=== PATIENT | male | born 1955 | race Caucasian/White ===

== ENCOUNTER 2020-09-28 11:38 | Emergency (ER) | payer MEDICARE ==
[2020-09-28] MEDS ORDERED: NA CHLORIDE 0.9% 2,000 ML ONE (12:07)
[2020-09-28] MEDS ORDERED: ADENOSINE 6 MG/ 2ML VIAL IV ONE ×2 (12:08→12:13)
[2020-09-28] MEDS ORDERED: MIDAZOLAM HCL 2 MG/2 ML INJ ONE (12:12)
[2020-09-28] MEDS ORDERED: FENTANYL CITR 100 MCG/2 ML ONE (12:13)
[2020-09-28 12:15] LABS: Absolute Lymphocytes (CBC) 3.6 K/uL (0.7-4.9); Basophils % 1.1 % (0-1.3); Hematocrit 49.2 % (39.6-49.0); Lymphocytes % 34.4 % (15.3-44.8); MPV 8.1 fL (7.6-11.3); RBC Red Blood Cell Count 5.61 M/uL (4.33-5.43)
[2020-09-28] MEDS ORDERED: METOPROLOL TARTRATE 5 MG/5 ML INJ IV ONE (12:19)
[2020-09-28 12:24] LABS: Protime INR 1.03
[2020-09-28 12:37] LABS: ALT/SGPT 72 U/L (12-78); AST/SGOT 36 U/L (15-37); Albumin 4.8 g/dL (3.4-5.0); Alkaline Phosphatase 69 U/L (45-117); BUN Blood Urea Nitrogen 24 mg/dL (7-18); Bicarbonate 22 mmol/L (21-32); Bilirubin Direct 0.1 mg/dL (0-0.2); Bilirubin Total 0.5 mg/dL (0.2-1.0); Glucose Level 156 mg/dL (74-106); Magnesium 2.1 mg/dL (1.8-2.4); NT PRO-BNP 99 pg/mL (<125); Protein, Total 8.7 g/dL (6.4-8.2); Sodium Level 136 mmol/L (136-145); Troponin (Emerg Dept Use Only) < 0.02 ng/mL (0.0-0.045)
--- NOTE | 2020-09-28 12:40 | RAD REPORT ---
EXAM DESCRIPTION: RAD - Chest Single View - 09/28/2020 12:35 pm CLINICAL HISTORY: SOB COMPARISON: No comparisons FINDINGS: No evidence of edema or pneumonia. The heart size is within normal limits.No acute osseous abnormality. No significant pleural effusions or pneumothorax. Sternotomy. IMPRESSION: No acute cardiopulmonary disease.
--- NOTE | 2020-09-28 15:54 | EDPHYS ---
Physician Documentation [facility] Name: Homer Calero Age: 65 yrs Sex: Male : 1955 Arrival Date: 09/28/2020 Time: 11:45 Bed 20 Private MD: ED Physician Rolando Alarcon HPI: 09/28 16:10 This 65 yrs old Male presents to ER via Wheelchair with complaints of kdr Palpitations. 16:10 The patient presents with a history of heart racing. Context: The symptoms occur with kdr strenuous activity. Onset: The symptoms/episode began/occurred suddenly, just prior to arrival. Duration: The patient or guardian reports a single episode, that is still ongoing. Modifying factors: The symptoms are aggravated by nothing. The symptoms are alleviated by nothing. Associated signs and symptoms: Pertinent positives: lightheadedness, nausea. Severity of symptoms: At their worst the symptoms were moderate severe just prior to arrival, in the emergency department the symptoms are unchanged. The patient has not experienced similar symptoms in the past. The patient has not recently seen a physician. 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 - Social history:: Smoking status: Patient denies any tobacco usage or history of. ROS: 16:10 Constitutional: Negative for fever, chills, and weight loss, Eyes: Negative for injury, kdr pain, redness, and discharge, ENT: Negative for injury, pain, and discharge, Neck: Negative for injury, pain, and swelling, Respiratory: Negative for shortness of breath, cough, wheezing, and pleuritic chest pain, Abdomen/GI: Negative for abdominal pain, nausea, vomiting, diarrhea, and constipation, Back: Negative for injury and pain, : Negative for injury, bleeding, discharge, and swelling, MS/Extremity: Negative for injury and deformity, Skin: Negative for injury, rash, and discoloration, Neuro: Negative for headache, weakness, numbness, tingling, and seizure activity. Psych: Negative for depression, anxiety, suicide ideation, homicidal ideation, and hallucinations, Allergy/Immunology: Negative for hives, rash, and allergies, Endocrine: Negative for neck swelling, polydipsia, polyuria, polyphagia, and marked weight changes, Hematologic/Lymphatic: Negative for swollen nodes, abnormal bleeding, and unusual bruising. 16:10 Cardiovascular: Positive for palpitations, Fast thready pulse. Exam: 14:22 ECG was reviewed by the Attending Physician. kdr 16:10 Constitutional: This is a well developed, well nourished patient who is awake, alert, kdr and in no acute distress. Head/Face: Normocephalic, atraumatic. Eyes: Pupils equal round and reactive to light, extra-ocular motions intact. Lids and lashes normal. Conjunctiva and sclera are non-icteric and not injected. Cornea within normal limits. Periorbital areas with no swelling, redness, or edema. Neck: Trachea midline, no thyromegaly or masses palpated, and no cervical lymphadenopathy. Supple, full range of motion without nuchal rigidity, or vertebral point tenderness. No Meningismus. Chest/axilla: Normal chest wall appearance and motion. Nontender with no deformity. No lesions are appreciated. Respiratory: Lungs have equal breath sounds bilaterally, clear to auscultation and percussion. No rales, rhonchi or wheezes noted. No increased work of breathing, no retractions or nasal flaring. Abdomen/GI: Soft, non-tender, with normal bowel sounds. No distension or tympany. No guarding or rebound. No evidence of tenderness throughout. Back: No spinal tenderness. No costovertebral tenderness. Full range of motion. Skin: Warm, dry with normal turgor. Normal color with no rashes, no lesions, and no evidence of cellulitis. MS/ Extremity: Pulses equal, no cyanosis. Neurovascular intact. Full, normal range of motion. Neuro: Awake and alert, GCS 15, oriented to person, place, time, and situation. Cranial nerves II-XII grossly intact. Motor strength 5/5 in all extremities. Sensory grossly intact. Cerebellar exam normal. Normal gait. Psych: Awake, alert, with orientation to person, place and time. Behavior, mood, and affect are within normal limits. 16:10 Cardiovascular: Rate: tachycardic, Rhythm: regular, Pulses: no pulse deficits are appreciated, Heart sounds: normal, Edema: is not appreciated, JVD: is not appreciated. Vital Signs: 11:40 BP 109 / 89; Pulse 167; Resp 15; Pulse Ox 100% ; ld1 11:43 BP 105 / 73; Pulse 170; Resp 15; Pulse Ox 100% ; ld1 11:46 BP 88 / 71; Pulse 170; Resp 15; Pulse Ox 100% on R/A; ld1 11:50 BP 131 / 59; Pulse 102; Resp 12; Pulse Ox 100% ; ld1 11:56 BP 120 / 55; Pulse 84; Resp 19; Pulse Ox 100% on R/A; ld1 13:07 BP 129 / 65; Pulse 76; Resp 18; Pulse Ox 99% on R/A; ld1 15:06 BP 152 / 66; Pulse 76; Resp 18; Pulse Ox 100% on R/A; Pain 0/10; ld1 16:17 BP 156 / 68; Pulse 78; Resp 18; Pulse Ox 100% on R/A; ld1 Procedures: 16:10 Cardioversion: Chemical: 08/22 x 1. kdr MDM: 11:51 Patient medically screened. [facility] 15:55 Data reviewed: vital signs, nurses notes, lab test result(s), radiologic studies. kdr Counseling: I had a detailed discussion with the patient and/or guardian regarding: the historical points, exam findings, and any diagnostic results supporting the discharge/admit diagnosis, lab results, radiology results, the need for outpatient follow up. Response to treatment: the patient's symptoms have resolved after treatment, the patient's blood pressure is in an acceptable range, mental status has returned to baseline, the patient no longer shows bradycardia, the patient is not short of breath, the patient is not tachycardic. Special discussion: Based on the patient's history, exam, and Dx evaluation, there is no indication for emergent intervention or inpatient Tx. It is understood by the patient/guardian that if the Sx's persist or worsen they need to return immediately for re-evaluation. I discussed with the patient/guardian in detail that at this point there is no indication for admission to the hospital. It is understood, however, that if the symptoms persist or worsen the patient needs to return immediately for re-evaluation. ED course: See the nursing notes for medications given and time stamp. The patient improved with medications given and remained stable in the ED. 09/28 12:01 Order name: Basic Metabolic Panel [facility] 09/28 12:01 Order name: CBC with Diff; Complete Time: 15:34 [facility] 09/28 12:01 Order name: LFT's; Complete Time: 15: [facility] 09/28 12:01 Order name: Magnesium; Complete Time: 15: [facility] 09/28 12:01 Order name: NT PRO-BNP; Complete Time: 15:34 [facility] 09/28 12:01 Order name: PT-INR; Complete Time: 15: [facility] 09/28 12:01 Order name: Troponin (emerg Dept Use Only); Complete Time: 15:34 [facility] 09/28 12:01 Order name: XRAY Chest (1 view); Complete Time: 15:34 [facility] 09/28 12:01 Order name: Basic Metabolic Panel; Complete Time: 15:34 EDMS 09/28 13:37 Order name: Troponin (emerg Dept Use Only); Complete Time: 15:34 [facility] 09/28 12:01 Order name: EKG; Complete Time: 12:02 [facility] 09/28 12:01 Order name: Cardiac monitoring; Complete Time: 12: [facility] 09/28 12:01 Order name: EKG - Nurse/Tech; Complete Time: 12: [facility] 09/28 12:01 Order name: IV Saline Lock; Complete Time: 12: [facility] 09/28 12:01 Order name: Labs collected and sent; Complete Time: 12: [facility] 09/28 12:01 Order name: O2 Per Protocol; Complete Time: 12: [facility] 09/28 12:01 Order name: O2 Sat Monitoring; Complete Time: 12: [facility] 09/28 14:20 Order name: Labs - recollect needed: green top; Complete Time: 15:04 aa5 EC:22 Rate is 176 beats/min. Rhythm is regular, Sinus tachycardia with No ectopy. QRS Eunice is kdr Normal. DC interval is normal. QRS interval is normal. QT interval is normal. No Q waves. Clinical impression: Sinus tachycardia. Administered Medications: 11:48 Drug: Adenosine 6 mg Route: IVP; Site: right antecubital; ld1 12:07 Follow up: Response: Cardiac rhythm changed ld1 11:51 Drug: Adenosine 12 mg Route: IVP; Site: right antecubital; ld1 12:06 Follow up: Response: Cardiac rhythm changed ld1 12:00 Drug: Lopressor (metoprolol) 5 mg Route: IVP; Site: right antecubital; ld1 12:07 Follow up: Response: No adverse reaction ld1 12:06 Drug: NS 0.9% 1000 ml Route: IV; Rate: 1 bolus; Site: right antecubital; ld1 13:17 Follow up: Response: No adverse reaction; IV Status: Completed infusion; IV Intake: ld1 1000ml 12:16 CANCELLED (Duplicate Order): Metoprolol 5 mg IVP once; Hold for SBP <100 or HR <60. aa5 Disposition Summary: 09/28/20 15:53 Discharge Ordered Location: Home kdr Problem: new kdr Symptoms: are resolved kdr Condition: Stable kdr Diagnosis - Supraventricular tachycardia kdr - Shortness of breath kdr Followup: kdr - With: Private Physician - When: 2 - 3 days - Reason: If symptoms return, Further diagnostic work-up, Recheck today's complaints, Continuance of care, Re-evaluation by your physician Discharge Instructions: - Discharge Summary Sheet kdr - Supraventricular Tachycardia, Adult, [id number] kdr - Shortness of Breath, Adult, [id number] kdr Forms: - Medication Reconciliation Form kdr - Thank You Letter kdr Signatures: Dispatcher [employer] Rolando Ford MD MD kdr Apurva Mcgee RN RN aa5 Ortega Garduno PA PA 8 Mikaela Simon RN RN ld1 Corrections: (The following items were deleted from the chart) 12:16 12:15 Metoprolol 5 mg IVP once; Hold for SBP <100 or HR <60. ordered. aa5 aa5 12:16 12:15 Metoprolol 5 mg IVP once; Hold for SBP <100 or HR <60. given. aa5 aa5 12:16 12:16 Metoprolol 5 mg IVP once; Hold for SBP <100 or HR <60. ordered. aa5 aa5
--- NOTE | 2020-09-28 15:54 | ER ---
Nurse's Notes [facility] Name: Homer Calero Age: 65 yrs Sex: Male : 1955 Arrival Date: 09/28/2020 Time: 11:45 Bed 20 Private MD: Diagnosis: Supraventricular tachycardia;Shortness of breath Presentation: 09/28 11:45 Chief complaint: Patient states: "[place] dock and I started feeling aa5 lightheaded and my family member checked my pulse was thready and at 240". pt currently c/o feeling lightheaded, SOB, and palpitations. HR 190 in triage. 11:45 Onset of symptoms was September 28, 2020. aa5 11:45 Acuity: ANABELL 2 aa5 11:45 Method Of Arrival: Wheelchair aa5 11:45 Coronavirus screen: shortness of breath. Ebola Screen: Patient negative for fever aa5 greater than or equal to 101.5 degrees Fahrenheit, and additional compatible Ebola Virus Disease symptoms. Initial Sepsis Screen: Does the patient meet any 2 criteria? RR > 20 per min. HR > 90 bpm. Does the patient have a suspected source of infection? No. Patient's initial sepsis screen is negative. Risk Assessment: Do you want to hurt yourself or someone else? Patient reports no desire to harm self or others. 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 - Social history:: Smoking status: Patient denies any tobacco usage or history of. Screenin:56 Abuse screen: Denies threats or abuse. Denies injuries from another. Nutritional ld1 screening: No deficits noted. Tuberculosis screening: No symptoms or risk factors identified. Fall Risk None identified. Assessment: 11:55 General: Appears distressed, uncomfortable, Behavior is cooperative, appropriate for ld1 age, anxious. Pain: Denies pain. Neuro: Level of Consciousness is awake, alert, obeys commands, Oriented to person, place, time, situation. Cardiovascular: Reports diaphoresis, palpitations, shortness of breath, Capillary refill < 3 seconds Patient's skin is warm and dry. Rhythm is SVT. Respiratory: Airway is patent Respiratory effort is even, unlabored, Respiratory pattern is regular, symmetrical. GI: Abdomen is round non-distended. : No signs and/or symptoms were reported regarding the genitourinary system. EENT: No signs and/or symptoms were reported regarding the EENT system. Derm: Skin is diaphoretic. Musculoskeletal: No signs and/or symptoms reported regarding the musculoskeletal system. 13:07 Reassessment: Patient appears in no apparent distress at this time. Patient and/or ld1 family updated on plan of care and expected duration. Pain level reassessed. Patient is alert, oriented x 3, equal unlabored respirations, skin warm/dry/pink. laying in bed with son at bedside. Patient denies pain at this time. 15:06 Reassessment: Patient appears in no apparent distress at this time. Patient and/or ld1 family updated on plan of care and expected duration. Pain level reassessed. Patient is alert, oriented x 3, equal unlabored respirations, skin warm/dry/pink. 16:17 Reassessment: Patient appears in no apparent distress at this time. No changes from ld1 previously documented assessment. Patient and/or family updated on plan of care and expected duration. Pain level reassessed. Patient is alert, oriented x 3, equal unlabored respirations, skin warm/dry/pink. Vital Signs: 11:40 BP 109 / 89; Pulse 167; Resp 15; Pulse Ox 100% ; ld1 11:43 BP 105 / 73; Pulse 170; Resp 15; Pulse Ox 100% ; ld1 11:46 BP 88 / 71; Pulse 170; Resp 15; Pulse Ox 100% on R/A; ld1 11:50 BP 131 / 59; Pulse 102; Resp 12; Pulse Ox 100% ; ld1 11:56 BP 120 / 55; Pulse 84; Resp 19; Pulse Ox 100% on R/A; ld1 13:07 BP 129 / 65; Pulse 76; Resp 18; Pulse Ox 99% on R/A; ld1 15:06 BP 152 / 66; Pulse 76; Resp 18; Pulse Ox 100% on R/A; Pain 0/10; ld1 16:17 BP 156 / 68; Pulse 78; Resp 18; Pulse Ox 100% on R/A; ld1 ED Course: 11:45 Patient arrived in ED. ca1 11:49 EKG done, by ED staff, reviewed by Rolando Alarcon MD. mh5 11:49 Patient has correct armband on for positive identification. Placed in gown. Bed in low mh5 position. Call light in reach. Side rails up X 1. tumblers supervisor on. Pulse ox on. NIBP on. 11:51 Ortega Garduno PA is PHCP. jr8 11:51 Rolando Alarcon MD is Attending Physician. jr8 11:54 Alma Ospina, ZULEMA is Primary Nurse. ca1 11:56 Inserted saline lock: 20 gauge in right antecubital area, using aseptic technique. ld1 Blood collected. 11:56 Inserted saline lock: 20 gauge in left hand, using aseptic technique. Blood collected. ld1 12:12 Triage completed. aa5 12:35 XRAY Chest (1 view) In Process Unspecified. EDMS 16:17 No provider procedures requiring assistance completed. IV discontinued, intact, ld1 bleeding controlled, No redness/swelling at site. 16:17 Arm band placed on left wrist. ld1 Administered Medications: 11:48 Drug: Adenosine 6 mg Route: IVP; Site: right antecubital; ld1 12:07 Follow up: Response: Cardiac rhythm changed ld1 11:51 Drug: Adenosine 12 mg Route: IVP; Site: right antecubital; ld1 12:06 Follow up: Response: Cardiac rhythm changed ld1 12:00 Drug: Lopressor (metoprolol) 5 mg Route: IVP; Site: right antecubital; ld1 12:07 Follow up: Response: No adverse reaction ld1 12:06 Drug: NS 0.9% 1000 ml Route: IV; Rate: 1 bolus; Site: right antecubital; ld1 13:17 Follow up: Response: No adverse reaction; IV Status: Completed infusion; IV Intake: ld1 1000ml 12:16 CANCELLED (Duplicate Order): Metoprolol 5 mg IVP once; Hold for SBP <100 or HR <60. aa5 Intake: 13:17 IV: 1000ml; Total: 1000ml. ld1 Outcome: 15:53 Discharge ordered by . kdr 16:17 Discharged to home ambulatory. ld1 16:17 Condition: stable 16:17 Discharge instructions given to patient, family, Instructed on discharge instructions, follow up and referral plans. Demonstrated understanding of instructions, follow-up care. 16:17 Patient left the ED. ld1 Signatures: Dispatcher [employer] EDMS Rolando Alarcon MD MD kdr Apurva Mcgee RN RN aa5 Ortega Garduno PA PA jr8 Martinez, Maria Alma Salazar RN RN ca1 Mikaela Simon RN RN ld1 Corrections: (The following items were deleted from the chart) 12:16 12:15 Metoprolol 5 mg IVP in right antecubital aa5 aa5
[2020-09-28 16:55] VITALS: O2SAT 100
[2020-09-28 16:56] VITALS: BP 156/68
--- NOTE | 2020-09-29 11:49 | EKG ---
Test Date: 2020-09-28 Test Time: 11:56:49 Telephone Service Representative: GUS MEASUREMENT RESULTS: Intervals: Rate: 88 WA: 152 QRSD: 78 QT: 352 QTc: 425 [place]: P: 67 WA: 152 QRS: 28 T: 73 INTERPRETIVE STATEMENTS: Normal sinus rhythm Nonspecific ST abnormality Abnormal ECG Compared to ECG 09/28/2020 11:42:31 Supraventricular tachycardia no longer present ST (T wave) deviation still present Electronically Signed On 09-29-20 11:47:14 CDT by Nabeel Wilkerson
== END 2020-09-28 16:17 | disposition home or self-care (01) ==
LOC: ER 11:38
DX: I47.1 Supraventricular tachycardia (principal); R06.02 Shortness of breath; I51.9 Heart disease, unspecified; Z79.82 Long term (current) use of aspirin; Z95.1 Presence of aortocoronary bypass graft
CPT/HCPCS: 36415; 71045; 80048; 80076; 83735; 83880; 84484; 85025; 85610; 92960; 93005; 96361; 96374; 96375; 99285; J0153; J2250; J3010; J7030